=== PATIENT | male | born 2000 | race Caucasian/White ===

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

== ENCOUNTER 2025-01-14 15:42 | Emergency (ER) | payer SELFPAY ==
[2025-01-14] MEDS ORDERED: Milk Of Magnesia 30 ML UDCUP ONE (16:11)
[2025-01-14] MEDS ORDERED: Lidocaine Viscous Sol 2% 15 ml UD Cup ONE (16:11)
== END 2025-01-14 17:20 | disposition home or self-care (01) ==
LOC: MADERS 15:42
DX: K22.89 Other specified disease of esophagus (principal); F17.290 Nicotine dependence, other tobacco product, uncomplicated
CPT/HCPCS: 71046